=== PATIENT | male | born 1930 | race Caucasian/White ===

== ENCOUNTER → 2017-06-18 | Outpatient (CLI) | payer OTHER, SELFPAY ==
[~2017-06-18] MED LIST: ATOR20 PO; CAPHYD; CHOL10002 PO; HYDACE7.5L; HYDR1TAB94 PO; LEVFLO500; MECL25 PO; METO50 PO; OMEP20ER PO; POTCHL10ER; Percocet 5-3251 EACH PO; SIMV10 PO; ZESTORETIC 20-121 EA PO
[2017-06-18 19:04] LABS: Alanine Aminotransfer (ALT/SGP 14 U/L (12-78); Albumin, Blood 3.6 g/dL (3.4-5.0); Albumin/Globulin Ratio 0.9 (0.8-1.8); Alk Phos 46 U/L (50-136); Anion Gap 11 mmol/L (6-16); Aspartate Aminotrans (AST/SGOT 18 U/L (12-37); Bilirubin, Total 0.3 mg/dL (0.1-1.0); Blood Urea Nitrogen 38 mg/dL (8-24); Bun/Creatinine Ratio 39.3 (12.0-20.0); CO2, Blood 20 mmol/L (21-32); Chloride, Blood 106 mmol/L (98-108); Creatinine, Blood 0.97 mg/dL (0.60-1.20); Globulin, Blood 3.8 g/dL (2.2-4.0); Glomerular Filtration Rate >60 (60-); Glucose, Blood 86 mg/dL (70-99); Potassium, Blood 4.2 mmol/L (3.5-5.5); Sodium, Blood 137 mmol/L (136-145); Total Protein, Blood 7.4 g/dL (6.4-8.2)
== END | disposition home or self-care (01) ==
LOC: LAB 15:25
PROVIDERS: Nurse Practitioner Family
DX: G47.62 Sleep related leg cramps (principal)
CPT/HCPCS: 80053

== ENCOUNTER 2018-11-21 11:54 | Emergency (ER) | payer OTHER ==
[~2018-11-21] VITALS: Ht 167.6 cm; Wt 85.7 kg
[2018-11-21 12:41] LABS: BASOPHILS ABSOLUTE AUTO 0.02 K/mm3 (0.00-0.23); BASOPHILS PERCENT AUTO 0 % (0-2); EOSINOPHILS ABSOLUTE AUTO 0.06 K/mm3 (0.00-0.68); EOSINOPHILS PERCENT AUTO 1 % (0-6); Hematocrit 37.6 % (37.0-53.0); Hemoglobin 12.3 g/dL (13.5-17.5); IMMATURE GRAN ABSOLUTE AUTO 0.02 K/mm3 (0.00-0.10); IMMATURE GRAN PERCENT AUTO 0 % (0-1); LYMPHOCYTES ABSOLUTE AUTO 1.01 K/mm3 (0.84-5.20); LYMPHOCYTES PERCENT AUTO 16 % (21-46); MONOCYTES ABSOLUTE AUTO 0.72 K/mm3 (0.16-1.47); MONOCYTES PERCENT AUTO 11 % (4-13); Mean Corpuscular HGB 29.1 pg (26.0-34.0); Mean Corpuscular HGB Conc 32.7 g/dL (31.5-36.5); Mean Corpuscular Volume 89 fL (80-100); Mean Platelet Volume 10.8 fL (9.1-12.4); NEUTROPHILS ABSOLUTE AUTO 4.69 K/mm3 (1.96-9.15); NEUTROPHILS PERCENT AUTO 72 % (41-73); Platelet Count 161 K/mm3 (150-400); RDW Coefficient Variation 13.2 % (11.7-14.2); RDW Standard Deviation 42.7 fL (35.1-46.3); Red Blood Cell Count 4.22 M/mm3 (4.30-5.90); White Blood Cell Count 6.52 K/mm3 (4.00-11.30)
[2018-11-21 12:59] LABS: Alanine Aminotransfer (ALT/SGP 18 U/L (12-78); Albumin, Blood 3.8 g/dL (3.4-5.0); Albumin/Globulin Ratio 1.1 (0.8-1.8); Alk Phos 47 U/L (50-136); Anion Gap 7 mmol/L (6-16); Aspartate Aminotrans (AST/SGOT 18 U/L (12-37); Bilirubin, Total 0.5 mg/dL (0.1-1.0); Blood Urea Nitrogen 23 mg/dL (8-24); Bun/Creatinine Ratio 21.3 (12.0-20.0); CO2, Blood 23 mmol/L (21-32); Calcium, Blood 8.9 mg/dL (8.5-10.1); Chloride, Blood 108 mmol/L (98-108); Creatinine, Blood 1.08 mg/dL (0.60-1.20); Globulin, Blood 3.6 g/dL (2.2-4.0); Glomerular Filtration Rate >60 (60-); Glucose, Blood 98 mg/dL (70-99); Sodium, Blood 138 mmol/L (136-145); Total Protein, Blood 7.4 g/dL (6.4-8.2)
[2018-11-21] MEDS ORDERED: ALBU90OI INH (14:19)
[2018-11-21] MEDS ORDERED: Prednisone20 MG PO (14:19)
== END 2018-11-21 14:35 | disposition home or self-care (01) ==
LOC: ER 11:54
PROVIDERS: Emergency Medicine
DX: I48.91 Unspecified atrial fibrillation (principal); J40 Bronchitis, not specified as acute or chronic; I10 Essential (primary) hypertension; I25.810 Atherosclerosis of coronary artery bypass graft(s) without angina pectoris; Z88.5 Allergy status to narcotic agent; Z79.899 Other long term (current) drug therapy; Z87.891 Personal history of nicotine dependence
CPT/HCPCS: 71046; 80053; 85025; 93005; 93010; 99284-25

== ENCOUNTER → 2019-01-01 | Outpatient (CLI) | payer OTHER ==
[~2019-01-01] MED LIST changes: +ALBU90OI INH; +GABA100 PO; +PRAM.125 PO; +Prednisone20 MG PO; +SALM50IP INH
[2019-01-02 13:10] LABS: Stool Occult Bld Immuno 1 Negative (NEGATIVE); Stool Occult Bld Immuno 2 Negative (NEGATIVE)
== END | disposition home or self-care (01) ==
LOC: LAB SHORT 13:19 → LAB 13:19 → LAB FUT 12-20 15:05
PROVIDERS: Internal Medicine Gastroenterology
DX: K57.30 Diverticulosis of large intestine without perforation or abscess without bleeding (principal); D50.9 Iron deficiency anemia, unspecified; Z85.038 Personal history of other malignant neoplasm of large intestine
CPT/HCPCS: 82274

== ENCOUNTER 2019-01-31 12:24 | Emergency (ER) | payer OTHER ==
[~2019-01-31] VITALS: Ht 167.6 cm; Wt 68.0 kg
[~2019-01-31 12:24] MED LIST changes: -GABA100 PO; -PRAM.125 PO; -SALM50IP INH
[2019-01-31] MEDS ORDERED: SALM50IP INH (13:55)
[2019-01-31] MEDS ORDERED: GABA100 PO (13:55)
[2019-01-31] MEDS ORDERED: PRAM.125 PO (13:56)
[2019-01-31 14:22] LABS: BASOPHILS ABSOLUTE AUTO 0.02 K/mm3 (0.00-0.23); BASOPHILS PERCENT AUTO 0 % (0-2); EOSINOPHILS ABSOLUTE AUTO 0.12 K/mm3 (0.00-0.68); EOSINOPHILS PERCENT AUTO 2 % (0-6); Hematocrit 34.8 % (37.0-53.0); Hemoglobin 11.3 g/dL (13.5-17.5); IMMATURE GRAN ABSOLUTE AUTO 0.02 K/mm3 (0.00-0.10); IMMATURE GRAN PERCENT AUTO 0 % (0-1); LYMPHOCYTES ABSOLUTE AUTO 0.88 K/mm3 (0.84-5.20); LYMPHOCYTES PERCENT AUTO 17 % (21-46); MONOCYTES ABSOLUTE AUTO 0.52 K/mm3 (0.16-1.47); MONOCYTES PERCENT AUTO 10 % (4-13); Mean Corpuscular HGB 28.8 pg (26.0-34.0); Mean Corpuscular HGB Conc 32.5 g/dL (31.5-36.5); Mean Corpuscular Volume 89 fL (80-100); Mean Platelet Volume 10.5 fL (9.1-12.4); NEUTROPHILS ABSOLUTE AUTO 3.77 K/mm3 (1.96-9.15); NEUTROPHILS PERCENT AUTO 71 % (41-73); Platelet Count 160 K/mm3 (150-400); RDW Coefficient Variation 13.2 % (11.7-14.2); RDW Standard Deviation 42.7 fL (35.1-46.3); Red Blood Cell Count 3.92 M/mm3 (4.30-5.90); White Blood Cell Count 5.33 K/mm3 (4.00-11.30)
[2019-01-31 14:44] LABS: Alanine Aminotransfer (ALT/SGP 17 U/L (12-78); Albumin, Blood 3.6 g/dL (3.4-5.0); Albumin/Globulin Ratio 1.2 (0.8-1.8); Alk Phos 39 U/L (50-136); Anion Gap 6 mmol/L (6-16); Aspartate Aminotrans (AST/SGOT 12 U/L (12-37); Bilirubin, Total 0.5 mg/dL (0.1-1.0); Blood Urea Nitrogen 23 mg/dL (8-24); Bun/Creatinine Ratio 24.9 (12.0-20.0); CO2, Blood 27 mmol/L (21-32); Calcium, Blood 9.5 mg/dL (8.5-10.1); Chloride, Blood 106 mmol/L (98-108); Creatinine, Blood 0.92 mg/dL (0.60-1.20); Globulin, Blood 3.1 g/dL (2.2-4.0); Glomerular Filtration Rate >60 (60-); Glucose, Blood 94 mg/dL (70-99); Sodium, Blood 139 mmol/L (136-145); Total Protein, Blood 6.7 g/dL (6.4-8.2); Troponin I <0.015 ng/mL (0.000-0.040)
== END 2019-01-31 19:28 | disposition home or self-care (01) ==
LOC: ER 12:24
PROVIDERS: Physician Assistant
DX: R00.1 Bradycardia, unspecified (principal); I48.91 Unspecified atrial fibrillation; J44.9 Chronic obstructive pulmonary disease, unspecified; Z88.5 Allergy status to narcotic agent; Z79.899 Other long term (current) drug therapy; E78.00 Pure hypercholesterolemia, unspecified; Z87.891 Personal history of nicotine dependence
CPT/HCPCS: 36415; 71046; 71260; 80053; 83880; 84484; 85025; 85379; 93005; 93010; 99285-25; Q9967

== ENCOUNTER 2019-03-14 09:33 | Observation (INO) | payer OTHER ==
[~2019-03-14] VITALS: Wt 68.1 kg
[~2019-03-14 09:33] MED LIST changes: +GABA100 PO; +PRAM.125 PO; +SALM50IP INH
--- NOTE | 2019-03-14 19:30 | NUR ---
PT LYING IN BED, SPOUSE AT SIDE. MOVED AND ADJUSTED RECLINER CHAIR FOR HER INSTEAD OF IN BED WITH PT. TYLENOL GIVEN FOR HEADACHE. ELEVATED HOB FOR PACER TO PREVENT SWELLING. ICE PACK PROVIDED. WARM BLANKETS AND PILLOWS PROVIDED. CALL LIGHT IN REACH.
--- NOTE | 2019-03-15 03:18 | NUR ---
PT RESTING. TYLENOL GIVEN FOR "50/10" PAIN. INJURED LEFT SHOULDER ABOUT A MONTH AGO AND NOW THE PACER PLACEMENT. STATES HE TRIED ROLLING ONTO HIS SIDE AND HAD HORRIBLE PAIN. REMINDED HIM OF LYING ON BACK WITH HEAD SLIGHTLY ELEVATED TO HELP REDUCE SWELLING. ARM SLING PLACED AT THAT TIME. CALL LIGHT IN REACH.
--- NOTE | 2019-03-15 06:31 | NUR ---
SHIFT SUMMARY PT AWAKENED FOR AM MEDS AND VS. STILL COMPLAINING OF LEFT SHOULDER PAIN FROM PREV INJURY - SURGICAL PROCEDURE HAS NOT HELPED MATTERS. PLEASANT AND COOPERATIVE, [place]. SPOUSE AT BEDSIDE IN RECLINER. DECAF COFFEE PROVIDED HE IS AN AVID COFFEE DRINKER HOWEVER HIS BP IS ELEVATED WITHOUT HIS HOME MEDS ORDERED. NO SIG SWELLING TO SURG SITE. SLING IN PLACE. ABX INFUSING AT THIS TIME. CALL LIGHT IN REACH. WILL CONT TO MONITOR AND REPORT TO DAY SHIFT RN.
[2019-03-15] MEDS ORDERED: SALM50IP INH (11:42)
[2019-03-15] MEDS ORDERED: Neurontin 100100 MG (11:42)
[2019-03-15] MEDS ORDERED: ATOR40TA (11:42)
[2019-03-15] MEDS ORDERED: Lipitor20 MG PO (11:42)
[2019-03-15] MEDS ORDERED: Ranitidine HCl300 MG (11:42)
[2019-03-15] MEDS ORDERED: ALBU90OI (11:42)
[2019-03-15] MEDS ORDERED: PRAMIPEXOLE0.125 M1 PO (11:42)
[2019-03-15] MEDS ORDERED: ZESTORETIC 20-1 EACH PO (11:42)
--- NOTE | 2019-03-15 12:25 | NUR ---
PT WAS D/C HOME WITH S/O. PT OTD IN WHEELCHAIR. PT EXPRESSED UNDERSTANDING OF DC TEACHING TO CONTINUE HOME MEDICATIONS, FOLLOW UP WITH PCP AND PLATE AND WELD INSPECTOR. PT DENIES FURTHER NEEDS
== END 2019-03-15 12:27 | disposition home or self-care (01) ==
LOC: MHTC 09:33 → PCU 17:42 → MHTC 03-15 00:14 → PCU 03-15 00:15
PROVIDERS: ADMIT Internal Medicine Cardiovascular Disease
PROC: 02H63JZ Insertion of Pacemaker Lead into Right Atrium, Percutaneous Approach (ICD-10-PCS; principal; 2019-03-14)
PROC: 0JH606Z Insertion of Pacemaker, Dual Chamber into Chest Subcutaneous Tissue and Fascia, Open Approach (ICD-10-PCS; principal; 2019-03-14)
PROC: 02HK3JZ Insertion of Pacemaker Lead into Right Ventricle, Percutaneous Approach (ICD-10-PCS; principal; 2019-03-14)
PROC: 4B02XSZ Measurement of Cardiac Pacemaker, External Approach (ICD-10-PCS; 2019-03-15)
DX: I44.2 Atrioventricular block, complete (principal); I10 Essential (primary) hypertension; I35.0 Nonrheumatic aortic (valve) stenosis; I25.10 Atherosclerotic heart disease of native coronary artery without angina pectoris; E78.5 Hyperlipidemia, unspecified; E78.00 Pure hypercholesterolemia, unspecified; Z79.82 Long term (current) use of aspirin; Z79.899 Other long term (current) drug therapy; Z88.5 Allergy status to narcotic agent; Z95.1 Presence of aortocoronary bypass graft
CPT/HCPCS: 33208; 71045; 71046; 76937; 93005; 93010; 99152; 99153; A9270; C1785; C1898; J0360; J0690; J1644; J2250; J3010; J7040; J7050; Q9967